=== PATIENT | female | born 1990 | race Caucasian/White ===

== ENCOUNTER 2020-02-18 14:23 | Emergency (ER) | payer OTHER, SELFPAY ==
[2020-02-18 14:25] VITALS: BP 146/101; PULSE 100; RESP 18; TEMP 36.7; O2SAT 98; BMI 38.9
[2020-02-18] MEDS: cycloBENZAPRine HCl 10 MG Tablet PO (16:27)
[2020-02-18] MEDS: Ibuprofen 600 MG Tablet PO (16:27)
[2020-02-18] MEDS: Morphine 4 MG/ML Syringe IM ×2 (16:28→17:08)
--- NOTE | 2020-02-18 17:07 | ED.VIS.BACK ---
History of Present Illness Chief Complaint: Back Informant: Patient Onset: Today Context: Sudden Onset Injury: Lifting Timing: Continuous Quality: Sharp Location: Lumbar Narrative: Patient is a 29-year-old female with no past medical history presenting with sudden onset of low back pain. Patient states she was picking up her 2-year-old straight up when suddenly she felt pain in her lower back. She says it is sharp. It radiates across her lower back. She denies any radiation down her legs. Is worse with movement and she is having a hard time walking since. Her brought her to the emergency room. She not take any medicine for the symptoms prior to arrival. She is not take any medicines on a daily basis and denies any prior history of any back issues. She denies any associated saddle anesthesia or leg weakness. No other complaints at this time. Past Medical History - Allergies and Home Meds Allergies/Adverse Reactions: Allergies acetaminophen [From Vicodin] Adverse Reaction (Verified 02/18/20 14:28) Nausea hydrocodone bitartrate [From Vicodin] Adverse Reaction (Verified 02/18/20 14:28) Nausea Primary Care Physician: Care Physician,No Primary [Primary Care Provider] - Past Medical History: None Surgical History: - - x2, breast reduction, breast lumpectomy Lives: Spouse/ Significant Other, With Family Smoking Status: Former smoker Review of Systems General: Denies: Chills, Fever, Sweats Eyes: Denies: Visual changes - bilaterally, Diplopia ENT: Denies: Rhinorrhea, Sore throat Cardiovascular: Denies: Chest pain, Palpitations Respiratory: Denies: Dyspnea, Cough, Dyspnea on exertion Gastrointestinal: Denies: Abdominal pain, Nausea, Vomiting, Diarrhea, Melena, Hematochezia Genitourinary: Denies: Dysuria, Hematuria, Frequency Musculoskeletal: Reports: Back pain. Denies: Extremity Pain Skin: Denies: Rash, Wounds Neurological: Denies: Headache, Weakness, Numbness Physical Exam Vital Signs/Narrative: Vital Signs Temp Pulse Resp BP Pulse Ox 02/18/20 14:25 98.0 F 100 18 146/101 H 98 Inital Vital Signs reviewed: Yes General: Well nourished, Well developed, - - Laying flat in the bed, tearful Head: Normocephalic, Atraumatic Eyes: Perrl, EOMI ENT: Moist mucous membranes, No rhinorrhea Neck: Supple, Nontender Cardiovascular: Regular rate, Regular rhythm, No murmurs Respiratory: No distress, CTA bilaterally, Chest nontender Abdomen: Soft, Nontender, Nondistended, Normal bowel sounds Back: Normal Inspection, Paraspinal Tenderness, Negative SLR - Right, Negative SLR - Left. Negative for: Spinal tenderness, CVA tenderness Extremeties: Nontender, No edema, Strong Pulses, Symmetric, -. Negative for: Tenderness Skin: Normal color, No rash Neuro: Alert, Oriented, Normal Strength, Normal Sensation Psychological: Normal affect, Tearful Diagnostic/Tx/Re-eval - Medical Decision Making Evaluated for atraumatic low back pain. She does not have signs or symptoms consistent with cauda equina syndrome. Is not reproducible on direct palpation. Is in the lower lumbar region. No midline tenderness. Patient is initially given 1 dose of IM morphine, Flexeril and Motrin with no significant improvement of her symptoms. She is given a second dose of 4 mg IM morphine is able to sit up on the side of the bed but is still very tearful and cannot stand up. Patient is given a third dose of 8 milligrams IM morphine and finally is able to pivot herself and transition to the wheelchair to move around. She states she would like to go home. Patient be discharged home with symptomatic treatment. She is given the family medicine on-call for outpatient follow-up as she does not really have a PCP at this time. She is counseled on the risk of sedating medication and to not watch her children without help if she is taking it. Patient is counseled on signs and symptoms requiring return to the emergency room. Patient verbalizes agreement and understand this plan. Patient discharged home in stable and improved condition. ED Disposition - Plan for ED Patient: Disposition: Home or Assisted Living Diagnosis: Acute lumbar back pain Instructions: ED Back Pain Acute or Chronic Prescriptions: cycloBENZAPRine HCl [Flexeril] 10 mg PO TID PRN #20 tab PRN Reason: Muscle Spasm Prescription Printed MethylPREDNISolone DosePak [Medrol DosePak] 4 mg PO UD #1 box Prescription Printed Ibuprofen [Motrin] 600 mg PO Q6H PRN PRN #20 tab PRN Reason: Pain Score 1-10/10 Prescription Printed Oxycodone HCl/Acetaminophen [Percocet 5/325] 1 tab PO Q6H PRN PRN 3 Days #12 tab PRN Reason: Pain Prescription Printed Referrals: Jakob Ambrose MD [STAFF PHYSICIAN] -
[2020-02-18] MEDS: morphine 8 MG/ML Syringe IM (18:01)
[2020-02-18 18:47] VITALS: BP 135/78; PULSE 76; RESP 17
--- NOTE | 2020-02-18 18:47 | ED.RN ---
DISCHARGE INSTRUCTIONS GIVEN TO AND REVIEWED WITH PATIENT DENIES QUESTIONS OR CONCERNS AND VOICES UNDERSTANDING OF DISCHARGE INSTRUCTIONS. PT TO PRIVATE VEHICLE VIA WHEELCHAIR.
== END 2020-02-18 18:48 | disposition home or self-care (01) ==
PROVIDERS: Emergency Provider Emergency Medicine
DX: M54.5 Low back pain (principal); Z79.899 Other long term (current) drug therapy
CPT/HCPCS: 96372; 99283